=== PATIENT | female | born 1990 | race Caucasian/White ===

== ENCOUNTER → 2019-02-23 12:35 | Outpatient (CLI) | payer OTHER, SELFPAY ==
[2019-02-23 13:00] LABS: Add Manual Diff / Slide Review NO; Basophils Absolute Auto 0 /uL (0-100); Basophils Percent Auto 0.9 % (0-2); Eosinophils Absolute Auto 0 /uL (0-450); Eosinophils Percent Auto 1.1 % (2-4); Hematocrit 39.7 % (36-46); Hemoglobin 13.8 g/dL (12.0-16.0); Lymphocytes Absolute Auto 1200 /uL (1100-4500); Lymphocytes Percent Auto 31.6 % (25-40); Mean Corpuscular HGB Conc 34.8 % (30-36); Mean Corpuscular Hemoglobin 31.3 PG (26-34); Monocytes Absolute Auto 200 /uL (0-900); Monocytes Percent Auto 5.9 % (3-14); Neutrophils Absolute Auto 2300 /uL (1500-7000); Neutrophils Percent Auto 60.5 % (50-75); Platelet Count 237 X10^3/uL (150-400); Red Blood Cell Count 4.41 X10^6/uL (4.0-5.2); White Blood Cell Count 3.8 X10^3/uL (4.5-11.0)
[2019-02-23 13:31] LABS: Alanine Aminotransferase 25 IU/L (9-52); Albumin 4.6 g/dL (3.5-5.0); Albumin Globulin Ratio 1.6 (1.0-2.8); Alkaline Phosphatase 49 U/L (38-126); Aspartate Aminotransferase 31 IU/L (14-36); Bilirubin Total 0.5 mg/dL (0.2-1.3); Blood Urea Nitrogen 4 mg/dL (7-17); Calcium 9.1 mg/dL (8.4-10.2); Carbon Dioxide 25 mmol/L (22-32); Chloride 101 mmol/L (98-107); Cholesterol 133 mg/dL (140-199); Estimated Glomerular Filt Rate > 60.0 mL/min (>60); Globulin 2.8 g/dL (1.7-4.1); Glucose 86 mg/dL (70-100); HDL Cholesterol 54 mg/dL (40-60); HEMOLYSIS < 15 (0-50); LDL Cholesterol Calculated 71 mg/dL (<100); Sodium 137 mmol/L (137-145); Total Protein 7.4 g/dL (6.3-8.2); Triglycerides 39 mg/dL (35-150)
[2019-02-23 14:05] LABS: Ferritin 18.3 ng/mL (6.27-137)
[2019-02-23 15:18] LABS: Free T3, Triiodothyronine Free 4.48 pg/mL (2.77-5.27); Free T4, Direct Thyroxine 1.16 ng/dL (0.78-2.19)
[2019-02-23 15:32] LABS: Thyroid Stimulating Hormone 1.26 uIU/mL (0.47-4.68)
[2019-02-27 15:33] LABS: Anti Thyroglobulin Antibody 6 IU/mL (< 2); Thyroid Peroxidase Antibodies < 1 IU/mL (< 9)
== END ==
PROVIDERS: Visit Provider Naturopath
DX: Z00.00 Encounter for general adult medical examination without abnormal findings (principal); R53.83 Other fatigue
CPT/HCPCS: 36415; 80053; 80061; 82728; 84439; 84443; 84481; 85025; 86376; 86800

== ENCOUNTER 2019-05-25 14:07 | Emergency (ER) | payer OTHER, SELFPAY ==
[2019-05-25 14:10] VITALS: BP 111/75; PULSE 98; RESP 16; TEMP 37; O2SAT 100; BMI 20.3
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
== END 2019-05-25 16:45 | disposition short-term general hospital (02) ==
PROVIDERS: Emergency Provider Nurse Practitioner; PCP Naturopath
DX: T76.21XA Adult sexual abuse, suspected, initial encounter (principal)
CPT/HCPCS: 99281; 99283

== ENCOUNTER → 2022-06-04 19:12 | Outpatient (CLI) | payer OTHER, SELFPAY ==
[2022-06-04 21:02] LABS: Urine N gonorrhoeae NOT DETECTED
[2022-06-04 21:20] LABS: Urine Chlamydia NOT DETECTED
== END ==
PROVIDERS: PCP Naturopath; Visit Provider Family Medicine
DX: Z72.51 High risk heterosexual behavior (principal)
CPT/HCPCS: 87491; 87591

== ENCOUNTER 2022-08-13 17:30 | Observation (INO) | payer OTHER, SELFPAY ==
[2022-08-13] VITALS (13 sets, daily range): BP systolic 101–122; BP diastolic 60–76; PULSE 62–119; RESP 13–18; TEMP 36.2–37; O2SAT 96–100; BMI 21.2
--- NOTE | 2022-08-13 18:16 | ED_ITS ---
HPI - Abdominal Pain General Chief Complaint: Abdominal Pain Stated Complaint: ABD PAIN COLD CLAMMY, FEVER Time Seen by Provider: 08/13/22 18:16 Source: patient Mode of arrival: Wheelchair History of Present Illness HPI narrative: 32-year-old female smoker presents with a chief complaint of severe right lower quadrant pain that started relatively suddenly a few hours ago. She has had nausea and vomiting as well. She denies any fever but has been chilled. She states that her pain seems to be worse when she moves and improves with rest. Her last menstrual cycle was about 3 weeks ago. She denies any vaginal bleeding or discharge but states that she was spotting earlier in the week. She denies any dysuria, frequency or urgency. She denies runny nose, sore throat or cough and has no chest pain, shortness of breath Related Data Home Medications Medication Instructions Recorded Confirmed spironolactone 50 mg tablet 100 mg PO DAILY ##0 08/09/17 08/13/22 (Aldactone) minoxidil 2.5 mg tablet 2.5 mg PO Q OTHER DAY 08/13/22 08/13/22 Allergies Allergy/AdvReac Type Severity Reaction Status Date / Time UNKNOWN ABX FOR SKIN Allergy Unknown Uncoded 02/08/18 12:58 INFECTION Review of Systems Review of Systems Narrative: GENERAL: See HPI HEENT: Denies sinus pain, ear pain, sore throat, difficulty swallowing, dizziness. RESPIRATORY: See HPI CARDIOVASCULAR: Denies chest pain, palpitations, orthopnea, edema, GASTROINTESTINAL: See HPI : See HPI MUSCULOSKELETAL: denies weakness, joint pain, or bony pain SKIN: Denies rash, skin lesions, or other NEUROLOGIC: Denies weakness, headache, numbness, change in speech, confusion, seizures, incoordination. PSYCHIATRIC: No concerning psychosocial issues. 12 point review of systems is negative except for those stated above Patient History Medical History No significant medical problems Routine screening for STI (sexually transmitted infection) Social History household members: none Smoking Status: Current some day smoker alcohol intake: current Smoking Status: Current some day smoker tobacco type: vaping alcohol intake frequency: a few times a week Substance Use Type: does not use Exam Narrative Exam Narrative: GENERAL: [32] year old patient appears stated age. Well-developed patient, in mild distress. HEAD: Atraumatic. Normocephalic. EYES: Pupils equal round and reactive. Extraocular motions intact. No scleral icterus. No injection or drainage. ENT: Nose without bleeding, purulent drainage. Throat without erythema, tonsillar hypertrophy or exudate. Airway patent. NECK: Trachea midline. Non tender CARDIOVASCULAR: Regular rate and rhythm without murmurs, gallops, or rubs. RESPIRATORY: Clear to auscultation. Breath sounds equal bilaterally. No wheezes, rales, or rhonchi. GASTROINTESTINAL: Abdomen soft, right lower quadrant tenderness to palpation nondistended. EXTREMITIES: No edema or joint tenderness. BACK: Nontender without deformity or crepitance. No flank tenderness. NEURO: AOx3. SKIN: No rash or erythema of visible areas Initial Vital Signs Initial Vital Signs: Vital Signs Temperature 97.2 F L 08/13/22 17:42 Pulse Rate 62 08/13/22 17:42 Respiratory Rate 14 08/13/22 17:42 Blood Pressure 115/60 08/13/22 17:42 Pulse Oximetry 100 08/13/22 17:42 Oxygen Delivery Method 08/13/22 17:42 Course Orders Ordered: ED Orders 08/13/22 17:47 EKG-12 Lead Stat 08/13/22 18:29 COVID19 -Nasal RAPID/Pre-Proc Stat Complete Blood Count AUTO DIFF Stat Comprehensive Metabolic Panel Stat Ethanol (ETOH) Stat HCG Quantitative /Beta subunit Stat Lipase Stat 08/13/22 18:33 US pelvic complete Stat 08/13/22 19:38 Urine Drug Screen, Rapid Stat Oxycodone/Acetaminophen (Oxycodone/Acetaminophen 5/325 Tablet) 1 tab PO Q4HR PRN PRN Reason: Pain, Moderate (4-6) Discontinued Medications Albuterol (Albuterol 2.5 Mg/3 Ml Neb (Adult)) 2.5 mg INH NOW PRN PRN Reason: Coughing, Wheezing, Dyspnea Benzocaine (Benzocaine/Menthol 1 [place] Pkt) 1 each PO PRN PRN PRN Reason: Sore Throat Bupivacaine HCl/Epinephrine Bitart (Bupivacaine 0.5% W/ Epi (Pf) 30 Ml Vial) 30 ml INJ NOW ONE Stop: 08/13/22 21:54 Last Admin: 08/13/22 21:53 Dose: 12 ml Documented By: ONEIL Fentanyl (Fentanyl 100 Mcg/2 Ml Inj) 0 mcg IV Q5M PRN PRN Reason: Pain, Moderate (4-6) Hydromorphone HCl (Hydromorphone 0.5 Mg Inj) 0.5 mg IV NOW ONE Stop: 08/13/22 20:22 Last Admin: 08/13/22 20:30 Dose: 0.5 mg Documented By: CHRIS Hydromorphone HCl (Hydromorphone 2 Mg Inj) 0 mg IV Q5MIN PRN PRN Reason: Pain, Mild (1-3) Hydroxyzine HCl (Hydroxyzine 50 Mg/Ml Inj) 25 mg IM NOW PRN PRN Reason: Pain, Mild (1-3) Sodium Chloride (Normal Saline 0.9%) 1,000 mls @ 1,000 mls/hr IV BOLUS ONE Stop: 08/13/22 19:32 Last Infusion: 08/13/22 20:15 Dose: 0 mls/hr Documented By: Admin: 08/13/22 18:50 Dose: 1,000 mls/hr Documented By: DEMI Lactated Ringer's (Lactated Ringers) 1,000 mls @ 100 mls/hr IV CONT [facility] Last Infusion: 08/13/22 22:47 Dose: 0 mls/hr Documented By: Admin: 08/13/22 21:30 Dose: 100 mls/hr Documented By: ILIA Lactated Ringer's (Lactated Ringers) 1,000 mls @ 120 mls/hr IV CONT [facility] Last Admin: 08/13/22 23:52 Dose: Not Given Documented By: CINDY Ketorolac Tromethamine (Ketorolac 30 Mg/Ml Vial) 15 mg IV NOW ONE Stop: 08/13/22 18:34 Last Admin: 08/13/22 18:51 Dose: 15 mg Documented By: DEMI Lorazepam (Lorazepam 2 Mg/Ml Inj) 0.25 mg IV NOW PRN PRN Reason: Anxiety Meperidine HCl (Meperidine 50 Mg/Ml Inj) 12.5 mg IV PACUNOW PRN PRN Reason: Mild pain or shivering Ondansetron HCl (Ondansetron 4 Mg/2 Ml Inj) 4 mg IV NOW ONE Stop: 08/13/22 18:34 Last Admin: 08/13/22 18:50 Dose: 4 mg Documented By: DEMI Ondansetron HCl (Ondansetron 4 Mg/2 Ml Inj) 4 mg IV NOW PRN PRN Reason: Nausea And Vomiting Oxycodone HCl (Oxycodone Ir 5 Mg Tablet) 5 mg PO PACUNOW PRN PRN Reason: Mild or moderate pain Consultations Consultation #1: On-call gynecology contacted upon receipt of ultrasound, she will see patient at the bedside and take to the operating room tonight Vital Signs Vital signs: Vital Signs - 8 hr 08/13/22 17:42 08/13/22 18:31 08/13/22 18:41 Temperature 97.2 F L Pulse Rate 62 87 72 Respiratory Rate 14 18 Blood Pressure 115/60 Pulse Oximetry 100 100 100 Oxygen Delivery Method Room Air 08/13/22 18:41 08/13/22 19:00 08/13/22 19:00 Temperature Pulse Rate 62 Respiratory Rate Blood Pressure 108/69 112/75 Pulse Oximetry 100 Oxygen Delivery Method 08/13/22 19:30 08/13/22 19:30 Temperature Pulse Rate 63 Respiratory Rate Blood Pressure 109/64 Pulse Oximetry 100 Oxygen Delivery Method MDM - Abdominal Pain Lab Data Result diagrams: 08/13/22 18:29 08/13/22 18:29 Labs: Lab Results 08/13/22 08/13/22 08/13/22 Range/Units 18:29 18:29 18:29 WBC 10.7 (4.5-11.0) X10^3/uL RBC 4.04 (4.0-5.2) X10^6/uL Hgb 12.8 (12.0-16.0) g/dL Hct 36.4 (36-46) % MCV 90.3 (80-100) fL MCH 31.7 (26-34) PG MCHC 35.1 (30-36) % RDW 12.3 (11.6-14.8) % Plt Count 228 (150-400) X10^3/uL Neut % (Auto) 89.3 H (50-75) % Lymph % (Auto) 6.9 L (25-40) % Davie % (Auto) 3.6 (3-14) % Eos % (Auto) 0.1 L (2-4) % Baso % (Auto) 0.1 (0-2) % Neut # (Auto) 9600 H (3994-4786) /uL Lymph # (Auto) 700 L (1204-7647) /uL Davie # (Auto) 400 (0-900) /uL Eos # (Auto) 0 (0-450) /uL Baso # (Auto) 0 (0-100) /uL Sodium 133 L (137-145) mmol/L Potassium 3.5 (3.4-5.1) mmol/L Chloride 95 L (98-107) mmol/L Carbon Dioxide 25 (22-32) mmol/L BUN 6 L (7-17) mg/dL Creatinine 0.49 L (0.52-1.04) mg/dL Estimated GFR > 60 (>60) mL/min BUN/Creatinine Ratio 12.2 (6-22) Glucose 151 H (70-100) mg/dL Calcium 8.6 (8.4-10.2) mg/dL Total Bilirubin 0.3 (0.2-1.3) mg/dL AST 23 (14-36) IU/L ALT 20 (<35) IU/L Alkaline Phosphatase 59 (38-126) U/L Total Protein 7.4 (6.3-8.2) g/dL Albumin 4.6 (3.5-5.0) g/dL Globulin 2.8 (1.7-4.1) g/dL Albumin/Globulin Ratio 1.6 (1.0-2.8) Lipase 63 (23-300) U/L HCG, Quant < 2.4 mIU/mL U Opiates 300ng/mL cut (Negative) Ur Oxycodone Screen (Negative) Urine Methadone Screen (Negative) Ur Barbiturates Screen (Negative) U Tricyclic Antidepress (Negative) Ur Phencyclidine Scrn (Negative) Ur Amphetamines Screen (Negative) U Methamphetamines Scrn (Negative) Ur MDMA Scrn (Ecstasy) (Negative) U Benzodiazepines Scrn (Negative) Urine Cocaine Screen (Negative) U Marijuana (THC) Screen (Negative) Ethyl Alcohol ( - 10) mg/dL SARS-CoV-2 (PCR) (Negative) 08/13/22 08/13/22 08/13/22 Range/Units 18:29 18:29 19:38 WBC (4.5-11.0) X10^3/uL RBC (4.0-5.2) X10^6/uL Hgb (12.0-16.0) g/dL Hct (36-46) % MCV (80-100) fL MCH (26-34) PG MCHC (30-36) % RDW (11.6-14.8) % Plt Count (150-400) X10^3/uL Neut % (Auto) (50-75) % Lymph % (Auto) (25-40) % Davie % (Auto) (3-14) % Eos % (Auto) (2-4) % Baso % (Auto) (0-2) % Neut # (Auto) (3026-6328) /uL Lymph # (Auto) (8861-8091) /uL Davie # (Auto) (0-900) /uL Eos # (Auto) (0-450) /uL Baso # (Auto) (0-100) /uL Sodium (137-145) mmol/L Potassium (3.4-5.1) mmol/L Chloride (98-107) mmol/L Carbon Dioxide (22-32) mmol/L BUN (7-17) mg/dL Creatinine (0.52-1.04) mg/dL Estimated GFR (>60) mL/min BUN/Creatinine Ratio (6-22) Glucose (70-100) mg/dL Calcium (8.4-10.2) mg/dL Total Bilirubin (0.2-1.3) mg/dL AST (14-36) IU/L ALT (<35) IU/L Alkaline Phosphatase (38-126) U/L Total Protein (6.3-8.2) g/dL Albumin (3.5-5.0) g/dL Globulin (1.7-4.1) g/dL Albumin/Globulin Ratio (1.0-2.8) Lipase (23-300) U/L HCG, Quant mIU/mL U Opiates 300ng/mL cut Negative (Negative) Ur Oxycodone Screen Negative (Negative) Urine Methadone Screen Negative (Negative) Ur Barbiturates Screen Negative (Negative) U Tricyclic Antidepress Negative (Negative) Ur Phencyclidine Scrn Negative (Negative) Ur Amphetamines Screen Negative (Negative) U Methamphetamines Scrn Negative (Negative) Ur MDMA Scrn (Ecstasy) Negative (Negative) U Benzodiazepines Scrn Negative (Negative) Urine Cocaine Screen Negative (Negative) U Marijuana (THC) Screen Negative (Negative) Ethyl Alcohol < 10 ( - 10) mg/dL SARS-CoV-2 (PCR) Negative (Negative) Point of care testing: Point of Care Testing Test Results Negative Urine Dip Bedside Urine Glucose Negative Bedside Urine Bilirubin - Negative Bedside Urine Ketone +++ 80 Urine Specific [place] 1.015 Bedside Urine Occult Blood - Negative Bedside Urine pH 6.0 Bedside Urine Protein - Negative Bedside Urine Urobilinogen - Negative Bedside Urine Nitrite - Negative Bedside Urine Leukocytes - Negative Esterase Imaging Data [place] - [employer]OL ADMINISTRATOR: Radiologist's Impression: [address] [id number] Scan ReportSigned Patient: Leah Tello RMR#: [id number]: 07/20/1975Acct:[id number]/Sex: 47 / FDate of Service: 08/13/22Loc: EDAccession Number: [id number] Procedure: CT abdomen pelvis w con Ordering Provider: Ben Olson D.O. PROCEDURE: CT ABDOMEN PELVIS W CON INDICATIONS: abdominal pain back pain, diarrhea, blood TECHNIQUE: After the administration of IV contrast, axial sections were acquired from the lung bases to the pubic symphysis. Coronal and sagittal reformats were performed. For radiation dose reduction, the following was used: automated exposure control, adjustment of mA and/or kV according to patient size. COMPARISON: None. FINDINGS: Image quality: Excellent. Lung bases: Left lower lobe pulmonary nodule measuring 0.2 cm (3/3). No pleural effusion. Heart: No significant findings. ABDOMEN: Liver: Hepatic steatosis. Hepatomegaly. No focal lesion Gallbladder: Not distended. Biliary ducts: Not distended. Pancreas: No peripancreatic fluid collection. Spleen: No splenomegaly. Adrenal Glands: No nodule. Kidneys and Ureters: No hydronephrosis. Simple cyst at the right kidney. Stomach and Bowel: Stomach is not distended. No small bowel obstruction. The appendix is not dilated. Peritoneum: No abnormal intraperitoneal fluid. No free air. Ventral Wall: No hernia. Abdominal Nodes: No retroperitoneal or mesenteric adenopathy by size criteria. Vessels: Aorta and inferior vena cava are normal in size. Mild plaque. PELVIS: Pelvic Organs: Anteverted uterus. IUD centered in the uterine cavity. Trace fluid adjacent to the uterus. Small left ovarian cysts or follicles. Bladder: No stones. Pelvic Nodes: No enlarged lymph nodes. Miscellaneous: No inguinal hernias are seen. Bones: No suspicious lesion. IMPRESSION: 1. No acute abnormality identified. 2. Hepatic steatosis. Hepatomegaly. Dictated by: Jose Cole M.D. on 08/13/2022 at 21:28 Approved by: Jose Cole M.D. on 08/13/2022 at 21:34 Discharge Plan Departure Patient Disposition: Admitted to Surgery Clinical Impression: Ovarian torsion Admit Date/Time: 08/13/22 20:22 Admit Provider: Constance Morton
--- NOTE | 2022-08-13 18:33 | DI.US.S_ITS ---
PROCEDURE: US PELVIC COMPLETE INDICATIONS: severe RLQ pain TECHNIQUE: Real-time scanning was performed of the pelvic organs, with image documentation. Additional endovaginal scanning was necessary due to incomplete visualization of the adnexal and endometrial structures by transabdominal scanning. COMPARISON: None. FINDINGS: Uterus: Uterus is anteverted and normal in size at 7.3 x 4.2 x 3.5 cm. The myometrium is homogeneous. The endometrium measures 2 mm combined thickness. No fibroids seen. Ovaries: The right ovary measures 8.7 x 6.2 x 4.6 cm, with a calculated ovarian volume of 129 cc. The left ovary measures 3.2 x 2.8 x 2.3 cm, with a calculated ovarian volume of 11 cc. The ovaries have a normal sonographic appearance. Less than 12 follicles can be seen in each ovary. Right ovarian anechoic cyst measuring 3.7 x 3.4 x 3.2 cm located in the mid cold the sac. No internal vascularity. No conspicuous internal vascularity is demonstrated at the right ovary. Flow is seen in the left ovary. Other: No pathologic free abdominal or pelvic fluid. IMPRESSION: 1. Right ovary is markedly enlarged without or severely diminished internal blood flow. This is suspicious for right ovarian torsion. 2. Right ovarian anechoic cyst measuring 3.7 cm. 3. Blood flow is seen in the left ovary. 4. No endometrial thickening. Results were discussed with Ben Olson at 8:12 p.m. We strive to produce accurate, complete, and clear reports of imaging services. To assist us in improving patient care, this report was composed using standard report templates and voice recognition software. Therefore, it may contain abnormal punctuation, insertions and/or omissions. Occasional wrong-word or sound-alike substitutions may occur. Though we review the report and make efforts to correct it, we do recommend that the report be read carefully in proper context to recognize any text inaccuracies. Dictated by: Jose Cole M.D. on 08/13/2022 at 20:06 Approved by: Jose Cole M.D. on 08/13/2022 at 20:14
[2022-08-13 18:42] LABS: Add Manual Diff / Slide Review NO; Basophils Absolute Auto 0 /uL (0-100); Basophils Percent Auto 0.1 % (0-2); Eosinophils Absolute Auto 0 /uL (0-450); Eosinophils Percent Auto 0.1 % (2-4); Hematocrit 36.4 % (36-46); Hemoglobin 12.8 g/dL (12.0-16.0); Lymphocytes Absolute Auto 700 /uL (1100-4500); Lymphocytes Percent Auto 6.9 % (25-40); Mean Corpuscular HGB Conc 35.1 % (30-36); Mean Corpuscular Hemoglobin 31.7 PG (26-34); Mean Corpuscular Volume 90.3 fL (80-100); Monocytes Absolute Auto 400 /uL (0-900); Monocytes Percent Auto 3.6 % (3-14); Neutrophils Absolute Auto 9600 /uL (1500-7000); Neutrophils Percent Auto 89.3 % (50-75); Platelet Count 228 X10^3/uL (150-400); Red Blood Cell Count 4.04 X10^6/uL (4.0-5.2); Red Cell Distribution Width 12.3 % (11.6-14.8); White Blood Cell Count 10.7 X10^3/uL (4.5-11.0)
[2022-08-13 18:50] LABS: Alanine Aminotransferase 20 IU/L (<35); Albumin 4.6 g/dL (3.5-5.0); Albumin Globulin Ratio 1.6 (1.0-2.8); Alkaline Phosphatase 59 U/L (38-126); Aspartate Aminotransferase 23 IU/L (14-36); BUN Creatinine Ratio 12.2 (6-22); Bilirubin Total 0.3 mg/dL (0.2-1.3); Blood Urea Nitrogen 6 mg/dL (7-17); Calcium 8.6 mg/dL (8.4-10.2); Carbon Dioxide 25 mmol/L (22-32); Chloride 95 mmol/L (98-107); Estimated Glomerular Filt Rate > 60 mL/min (>60); Globulin 2.8 g/dL (1.7-4.1); Glucose 151 mg/dL (70-100); HEMOLYSIS < 15 (0-50); Lipase 63 U/L (23-300); Potassium 3.5 mmol/L (3.4-5.1); Sodium 133 mmol/L (137-145); Total Protein 7.4 g/dL (6.3-8.2)
[2022-08-13] MEDS: ONDANSETRON 4 MG/2 ML INJ IV (18:50)
[2022-08-13] MEDS: SODIUM CHLORIDE 0.9% 1,000 ML 1000 ML IV (18:50)
[2022-08-13] MEDS: KETOROLAC 30 MG/ML VIAL 15 MG IV (18:51)
[2022-08-13 18:58] LABS: COVID19 -Nasal RAPID Negative (Negative)
[2022-08-13 19:23] LABS: HCG Quantitative /Beta subunit < 2.4 mIU/mL
[2022-08-13] MEDS: HYDROMORPHONE 0.5 MG INJ IV (20:30)
--- NOTE | 2022-08-13 20:35 | PM.PREOP ---
Pre-operative Note COVID-19 COVID-19 status: Negative Result date/Date tested (Pos, Neg/Pending): 08/13/22 Criteria for continued procedure: Expected advancement of disease process Interval Note History & Physical reviewed/Exam performed by Physician: Yes Changes to H&P: No
--- NOTE | 2022-08-13 20:35 | PM.GYNHP.1 ---
History of Present Illness History of Present Illness Reason for admission: other (Right lower quadrant pain) Narrative: Mona Ohara is a 32 year old female presented to the emergency room after sudden onset right lower quadrant pain at 2:30 p.m.. Patient had nausea vomiting. She has not had anything oral other than water since last night. Patient's last menstrual period was approximately 2 weeks ago. She is using Nexplanon for control. She denies any urinary tract infection symptoms. No diarrhea or constipation. She has not had any abdominal surgery. She denies any history of . [facility] Medical History No significant medical problems Routine screening for STI (sexually transmitted infection) Social History Smoking Status: Current some day smoker Meds Home Medications and Allergies Home Medications Medication Instructions Recorded Confirmed Type spironolactone 50 mg tablet ##0 08/09/17 History (Aldactone) Allergies Allergy/AdvReac Type Severity Reaction Status Date / Time UNKNOWN ABX FOR SKIN Allergy Unknown Uncoded 02/08/18 12:58 INFECTION Review of Systems Review of Systems Narrative: Patient complains of right lower quadrant pain with nausea and vomiting. Unclear about fevers. The pain was sudden in onset. Last menstrual period approximately 2 weeks ago. She is currently using Nexplanon for control. Patient denies any problems with urination. No problems with constipation or diarrhea. No history of any prior surgeries. Exam Vital Signs (past 8 hours): - 08/13/22 17:42 08/13/22 18:31 Temperature 97.2 F L Pulse Rate 62 87 Respiratory Rate 14 18 Blood Pressure 115/60 Pulse Oximetry 100 100 Oxygen Delivery Method Room Air Oxygen Delivery Method Room Air Narrative Exam Narrative: Patient appears in acute distress. She is unable to sit quietly. She is having dry heaves. HEENT exam within normal limits. Lungs are clear to auscultation percussion. Heart is regular rate and rhythm no S3-S4 murmurs. Abdomen is soft with tenderness in the right lower quadrant. Pelvic exam not performed. Extremities without edema and nontender. Objective Imaging US - abdomen: Radiologist's impression: PROCEDURE:? US PELVIC COMPLETE ? INDICATIONS:? severe RLQ pain ? TECHNIQUE:? Real-time scanning was performed of the pelvic organs, with image documentation.? Additional endovaginal scanning was necessary due to incomplete visualization of the adnexal and endometrial structures by transabdominal scanning.? ? COMPARISON:? None. ? FINDINGS:? ?? Uterus:? Uterus is anteverted and normal in size at 7.3 x 4.2 x 3.5 cm. The myometrium is homogeneous. ? The endometrium measures 2 mm combined thickness.? No fibroids seen. ? Ovaries:? The right ovary measures 8.7 x 6.2 x 4.6 cm, with a calculated ovarian volume of 129 cc. The left ovary measures 3.2 x 2.8 x 2.3 cm, with a calculated ovarian volume of 11 cc. The ovaries have a normal sonographic appearance. Less than 12 follicles can be seen in each ovary.? Right ovarian anechoic cyst measuring 3.7 x 3.4 x 3.2 cm located in the mid cold the sac.? No internal vascularity.? No conspicuous internal vascularity is demonstrated at the right ovary.? Flow is seen in the left ovary. ? Other:? No pathologic free abdominal or pelvic fluid. ? ? IMPRESSION:? 1. Right ovary is markedly enlarged without or severely diminished internal blood flow.? This is suspicious for right ovarian torsion. ? 2. Right ovarian anechoic cyst measuring 3.7 cm. ? 3. Blood flow is seen in the left ovary. ? 4. No endometrial thickening.? ? Results were discussed with Ben Olson at 8:12 p.m. ? Labs Result Diagrams: 08/13/22 18:29 08/13/22 18:29 Labs: Laboratory Results - last 24 hr 08/13/22 08/13/22 08/13/22 18:29 18:29 18:29 WBC 10.7 RBC 4.04 Hgb 12.8 Hct 36.4 MCV 90.3 MCH 31.7 MCHC 35.1 RDW 12.3 Plt Count 228 Neut % (Auto) 89.3 H Lymph % (Auto) 6.9 L [place] % (Auto) 3.6 Eos % (Auto) 0.1 L Baso % (Auto) 0.1 Neut # (Auto) 9600 H Lymph # (Auto) 700 L [place] # (Auto) 400 Eos # (Auto) 0 Baso # (Auto) 0 Sodium 133 L Potassium 3.5 Chloride 95 L Carbon Dioxide 25 BUN 6 L Creatinine 0.49 L Estimated GFR > 60 BUN/Creatinine Ratio 12.2 Glucose 151 H Calcium 8.6 Total Bilirubin 0.3 AST 23 ALT 20 Alkaline Phosphatase 59 Total Protein 7.4 Albumin 4.6 Globulin 2.8 Albumin/Globulin Ratio 1.6 Lipase 63 HCG, Quant < 2.4 SARS-CoV-2 (PCR) 08/13/22 18:29 WBC RBC Hgb Hct MCV MCH MCHC RDW Plt Count Neut % (Auto) Lymph % (Auto) [place] % (Auto) Eos % (Auto) Baso % (Auto) Neut # (Auto) Lymph # (Auto) [place] # (Auto) Eos # (Auto) Baso # (Auto) Sodium Potassium Chloride Carbon Dioxide BUN Creatinine Estimated GFR BUN/Creatinine Ratio Glucose Calcium Total Bilirubin AST ALT Alkaline Phosphatase Total Protein Albumin Globulin Albumin/Globulin Ratio Lipase HCG, Quant SARS-CoV-2 (PCR) Negative Assessment & Plan Assessment and plan (1) Ovary, torsion: Status: Acute Assessment & Plan narrative: Patient with what appears by symptoms and ultrasound finding to be a right ovarian torsion. Laparoscopic evaluation with untwisting of the ovary, possible removal of ovarian cyst, possible oophorectomy. Consent form for laparoscopy was reviewed with the patient. Minimal risk of reaction to medication or anesthesia, damage to internal structures such as bowel, bladder, ureters that could require opening the abdomen to repair or additional surgery, minimal risk of infection or bleeding. Consent form signed with mother present and sign with mother signing as witness. Questions answered. COVID-19 COVID-19 status: Negative Result date/Date tested (Pos, Neg/Pending): 08/13/22 Time Spent With Patient Time with patient: less than 30 minutes Critical Care time: I spent a total of [] minutes of critical care time on this patient's care today; this time is exclusive of procedural time.
[2022-08-13 20:49] LABS: Ethanol (ETOH) < 10 mg/dL
[2022-08-13] MEDS: LACTATED RINGERS 1,000 ML 100 ML IV (21:30)
[2022-08-13 21:32] LABS: UR Morphine/Opiate cutoff 300 Negative (Negative); Ur Creatinine Normal (Normal); Ur Specific Gravity Normal (Normal); Urine Amphetamines Negative (Negative); Urine Barbiturates Negative (Negative); Urine Benzodiazepines Negative (Negative); Urine Cocaine Negative (Negative); Urine MDMA Negative (Negative); Urine Methadone Negative (Negative); Urine Methamphetamines Negative (Negative); Urine Oxycodone Negative (Negative); Urine Phencyclidine Negative (Negative); Urine Tetrahydrocannabinol Negative (Negative); Urine Tricyclic Antidepressant Negative (Negative); Urine pH Normal (Normal)
--- NOTE | 2022-08-13 21:46 | SUR.OPER ---
Lithotomy on padded OR bed, head on pillow, arms secured on padded arm boards at <90 degrees abduction. Legs secured in padded yellow fins stirrups.
[2022-08-13] MEDS: BUPIVACAINE 0.5% W/ EPI (PF) 30 ML VIAL INJ (21:53)
--- NOTE | 2022-08-13 23:18 | SUR.PHASEI ---
Patient transferred to the floor with mother present. VS stable. Report given to Lisa Morocho RN. Abdominal dressings and peripad CDI. IV saline locked.
[2022-08-14 00:20] VITALS: BP 111/68; PULSE 74; RESP 18; TEMP 36.2; O2SAT 98
[2022-08-14 01:20] VITALS: BP 111/66; PULSE 89; RESP 18; TEMP 37.1; O2SAT 97
[2022-08-14 02:50] VITALS: BP 120/66; PULSE 85; RESP 18; TEMP 36.8; O2SAT 98
--- NOTE | 2022-08-14 02:56 | PC.ADMIT ---
Addendum entered by Lisa Morocho R.N. 08/14/22 03:39: Contacted Dr. Morton regarding patients home medication Minoxidil and Spironolactone, she stated patient could wait until tomorrow when she gets home to take. Original Note: [address] [place] [address] Admission Note: Patient admitted to AC unit at 22:55 from PACU. Alert and oriented x 4, lying in bed and appears comfortable. Oriented to room and shown how to use call light. Brakes on bed are locked and bed is in low position. Patient has 3 lap sites to abdomen covered by bandages and a ventura pad in place, all CDI. Tolerating food and liquids. The patient,Mona Ohara,32 y/o, was given written information regarding hospital policies, unit procedures and contact persons. Patient's smoking status: Current some day smoker. Vital Signs - 8 hr 08/13/22 19:00 08/13/22 19:00 08/13/22 19:30 Temperature Pulse Rate 62 Respiratory Rate Blood Pressure 112/75 109/64 Pulse Oximetry 100 Oxygen Delivery Method Oxygen Flow Rate 08/13/22 19:30 08/13/22 22:17 08/13/22 22:22 Temperature Pulse Rate 63 119 H 112 H Respiratory Rate 14 13 Blood Pressure 103/60 110/73 Pulse Oximetry 100 100 100 Oxygen Delivery Method Room Air Room Air Oxygen Flow Rate 08/13/22 22:28 08/13/22 22:32 08/13/22 22:41 Temperature 97.9 F Pulse Rate 105 H 107 H 94 H Respiratory Rate 14 18 16 Blood Pressure 101/66 103/68 102/62 Pulse Oximetry 100 100 100 Oxygen Delivery Method Room Air Room Air Room Air Oxygen Flow Rate 08/13/22 22:13 08/13/22 22:55 08/13/22 23:20 Temperature 97.7 F 98.1 F 98.6 F Pulse Rate 118 H 94 H 98 H Respiratory Rate 17 18 18 Blood Pressure 112/76 122/70 109/67 Pulse Oximetry 96 100 99 Oxygen Delivery Method Room Air Oxygen Flow Rate 0 0 08/14/22 00:20 08/14/22 01:20 08/14/22 02:50 Temperature 97.1 F L 98.7 F 98.2 F Pulse Rate 74 89 85 Respiratory Rate 18 18 18 Blood Pressure 111/68 111/66 120/66 Pulse Oximetry 98 97 98 Oxygen Delivery Method Oxygen Flow Rate 0 0 0
[2022-08-14] MEDS: OXYCODONE/ACETAMINOPHEN 5/325 TABLET 1 TAB PO (03:09)
[2022-08-14 08:45] VITALS: BP 113/65; PULSE 84; RESP 18; TEMP 36.3; O2SAT 99
--- NOTE | 2022-08-14 08:47 | P.DS_ITS ---
History of Present Illness History of Present Illness Date Patient Seen: 08/14/22 Time Patient Seen: 08:47 Date of Onset of Symptoms: 08/13/22 Chief complaint: ABD PAIN COLD CLAMMY, FEVER Narrative: Patient had sudden onset of pain and presented to the emergency room. Patient was found to have a right ovarian tubal torsion. Discharge Providers Provider Date of admission: 08/13/22 20:22 Discharge Date: 08/14/22 Primary care physician: Kate Montelongo ND Discharge provider: Constance Morton MD Summary Hospital Course Discharge Diagnosis: Right ovarian tubal torsion Hospital Course: Patient had sudden onset of pain and presented to the emergency room. Patient was found to have a right ovarian tubal torsion. She underwent laparoscopy and the tube and ovary untwisted. She is feeling much better. She denies any fevers. She is ambulatory. She is tolerating regular diet. Status at Discharge Cognitive/behavioral status at discharge: oriented Functional status at discharge: independent ambulation Overall status at discharge: patient is progressing back to baseline Time Spent with Patient Time spent: Less than 30 minutes Exam Vital Signs (past 8 hours): - 08/14/22 01:20 08/14/22 02:50 08/14/22 08:45 Temperature 98.7 F 98.2 F 97.3 F L Pulse Rate 89 85 84 Respiratory Rate 18 18 18 Blood Pressure 111/66 120/66 113/65 Pulse Oximetry 97 98 99 Oxygen Flow Rate 0 0 0 Oxygen Delivery Method Room Air Oxygen Flow Rate 0 Narrative Exam Narrative: Abdomen is soft, nontender. Dressings are clean, dry, intact. Extremities without edema and nontender. Objective Labs Result Diagrams: 08/13/22 18:29 08/13/22 18:29 Labs: Laboratory Results - last 24 hr 08/13/22 08/13/22 08/13/22 18:29 18:29 18:29 WBC 10.7 RBC 4.04 Hgb 12.8 Hct 36.4 MCV 90.3 MCH 31.7 MCHC 35.1 RDW 12.3 Plt Count 228 Neut % (Auto) 89.3 H Lymph % (Auto) 6.9 L [place] % (Auto) 3.6 Eos % (Auto) 0.1 L Baso % (Auto) 0.1 Neut # (Auto) 9600 H Lymph # (Auto) 700 L [place] # (Auto) 400 Eos # (Auto) 0 Baso # (Auto) 0 Sodium 133 L Potassium 3.5 Chloride 95 L Carbon Dioxide 25 BUN 6 L Creatinine 0.49 L Estimated GFR > 60 BUN/Creatinine Ratio 12.2 Glucose 151 H Calcium 8.6 Total Bilirubin 0.3 AST 23 ALT 20 Alkaline Phosphatase 59 Total Protein 7.4 Albumin 4.6 Globulin 2.8 Albumin/Globulin Ratio 1.6 Lipase 63 HCG, Quant < 2.4 U Opiates 300ng/mL cut Ur Oxycodone Screen Urine Methadone Screen Ur Barbiturates Screen U Tricyclic Antidepress Ur Phencyclidine Scrn Ur Amphetamines Screen U Methamphetamines Scrn Ur MDMA Scrn (Ecstasy) U Benzodiazepines Scrn Urine Cocaine Screen U Marijuana (THC) Screen Ethyl Alcohol SARS-CoV-2 (PCR) 08/13/22 08/13/22 08/13/22 18:29 18:29 19:38 WBC RBC Hgb Hct MCV MCH MCHC RDW Plt Count Neut % (Auto) Lymph % (Auto) [place] % (Auto) Eos % (Auto) Baso % (Auto) Neut # (Auto) Lymph # (Auto) [place] # (Auto) Eos # (Auto) Baso # (Auto) Sodium Potassium Chloride Carbon Dioxide BUN Creatinine Estimated GFR BUN/Creatinine Ratio Glucose Calcium Total Bilirubin AST ALT Alkaline Phosphatase Total Protein Albumin Globulin Albumin/Globulin Ratio Lipase HCG, Quant U Opiates 300ng/mL cut Negative Ur Oxycodone Screen Negative Urine Methadone Screen Negative Ur Barbiturates Screen Negative U Tricyclic Antidepress Negative Ur Phencyclidine Scrn Negative Ur Amphetamines Screen Negative U Methamphetamines Scrn Negative Ur MDMA Scrn (Ecstasy) Negative U Benzodiazepines Scrn Negative Urine Cocaine Screen Negative U Marijuana (THC) Screen Negative Ethyl Alcohol < 10 SARS-CoV-2 (PCR) Negative [facility] Medical History No significant medical problems Routine screening for STI (sexually transmitted infection) Social History household members: none Smoking Status: Current some day smoker alcohol intake: current Discharge Assessment & Plan Assessment and Plan Assessment: Postoperative laparoscopy for right ovarian torsion. Patient is doing well. Plan of Treatment: Patient is to be discharged home. Patient is to have a follow-up in 6 weeks including an ultrasound to confirm resolution of the right ovarian hemorrhagic appearing cyst. Discharge Plan Discharge Plan Patient Disposition: Home Provider Discharge Comment: Patient should take Tylenol and Motrin up to 600 mg every 6 hours as needed for pain Discharge orders & Medications Prescriptions: New oxycodone 5 mg tablet 5 mg PO Q4H PRN (Reason: pain) Qty: 20 0RF Continued spironolactone [Aldactone] 50 MG tablet 100 mg PO DAILY Qty: 0 minoxidil 2.5 mg tablet 2.5 mg PO Q OTHER DAY Label Comments: take 1/2 tablet by mouth every other day Follow up/Referrals: Kate Montelongo ND [Primary Care Provider] - Constance Morton MD [Physician] - 6 Weeks (To be assigned to Dr. [place]) Diet/Activity/Treatments Diet: Regular Activity: No restrictions Skin/Wound/Dressing Care Report to your healthcare provider any signs of infection, such as:: chills, fever, increased pain, unusual drainage and unusual redness Dressing: May remove Band-Aids later today. Leave Steri-Strips in place for 1 week can get wet just pat dry. In one-week get wet and rub off Visit Report/Discharge Packet Instructions: DI for Laparoscopy, DI for Prescription Opioid Use Stand Alone Forms: Surgery Discharge Discharge Data Primary Care Provider: Kate Montelongo Attending Provider: Constance Morton Quality VTE Deep Vein Thrombosis/Pulmonary Embolism Present on Admission: No
--- NOTE | 2022-08-14 08:58 | PM.OP.1 ---
Operative Date/Time/Diagnoses Date of procedure: 08/13/22 Time of procedure: 22:15 Pre-op diagnosis: Ovarian torsion Post-op diagnosis: same Procedure & Clinicians Procedure: Laparoscopy with untwisting the right ovary Same procedure as scheduled: Yes Indications: Abdominal pain with ultrasound suggestive right ovarian torsion Surgeon: Constance Morton Click Yes if Unassisted: Yes Anesthesia Type: General Operative Notes Findings: Right tube and ovary torsion. Normal-appearing uterus and left tube and ovary. Normal bowel surface. Normal liver edge. No evidence of endometriosis or scar tissue. Ovary was entered in 3 places to see if there was any tumor and it appeared to be clotted blood only in the ovary. Closure Type: primary Specimen(s): none sent Estimated Blood Loss (mL): 5 Blood products transfused: none Procedure in detail: Patient was brought to the operating room where she underwent general anesthesia and was placed in low [place] stirrups and prepped and draped in the usual sterile fashion.? Pulsatile stockings were in place and functional.? No antibiotics were indicated.? A check system was reviewed with the staff in the room prior to beginning the case.? A moistened sponge stick was placed in the vagina.? The area of the umbilical incision was injected with .? An incision was made with a scalpel in the varies needle was placed through the incision into the abdomen with withdrawing of the needle and allowing a droplet water to fall through the needle to confirm correct placement.? 2 1/2 L of CO2 was placed in the abdomen.? A 5 mm trocar was placed through the incision is the abdomen.? There did not appear to be any damage with placement the trocar.? Under direct visualization after air injecting the skin and making an incision 5 mm trocars were placed in the right and left lower quadrant.? There was no damage to structures with placement of the trocars.? The right tube and ovary were dark blue.? The torsion of the right tube and ovary was untwisted.? The tube very quickly returned to normal color.? The enlarged ovary was cut into in 3 places with removal of blood clot only no evidence of tumor.? The ovary did have bleeding from the incisions confirming return of blood flow.? The abdomen was irrigated.? The CO2 was allowed escape from the abdomen and trocars removed.? Skin was closed with 4-0 Monocryl.? Estimated blood loss less than 5 cc.? Patient went to the recovery room in stable condition. Counts of instruments and sponges were correct. Complications: none Post-operative Condition: stable Disposition: observation Plan for aftercare: Patient will be observed overnight due to the time of day and the patient's living situation. Likely home in a.m..
== END 2022-08-14 10:25 | disposition home or self-care (01) ==
LOC: ED 18:16 → AC 20:23
PROVIDERS: Emergency Medicine; Admitting Provider Specialist; Emergency Provider Emergency Medicine; PCP Naturopath; Referring Provider Emergency Medicine; Visit Provider Specialist
PROC: (CPT 58661; principal; 2022-08-13 21:45)
DX: N83.511 Torsion of right ovary and ovarian pedicle (principal); R10.9 Unspecified abdominal pain; Z20.822 Contact with and (suspected) exposure to COVID-19; F17.210 Nicotine dependence, cigarettes, uncomplicated
CPT/HCPCS: 49320; 00840; 00848; 36415; 76830; 76856; 80053; 80305; 80320; 81003; 81025; 83690; 84702; 85025; 87635; 93005; 93010; 93976; 96361; 96374; 96375; 99219; 99284; C9803; G0378; J0330; J1100; J1170; J1885; J2250; J2405; J2704; J3010

== ENCOUNTER 2022-09-19 20:15 | Observation (INO) | payer OTHER, SELFPAY ==
[2022-08-13 20:46] VITALS: BMI 21.2
[2022-09-19] VITALS (8 sets, daily range): BP systolic 107–127; BP diastolic 57–87; PULSE 56–81; RESP 16–20; TEMP 36.4–37.2; O2SAT 92–100; BMI 21.2
[2022-09-19] MEDS: ONDANSETRON 4 MG/2 ML INJ IV ×2 (20:40→21:52)
--- NOTE | 2022-09-19 20:44 | DI.US.S_ITS ---
PROCEDURE: US PELVIC COMPLETE INDICATIONS: RIGHT PELVIC PAIN; RECENT RIGHT OVARIAN TORSION TECHNIQUE: Real-time scanning was performed of the pelvic organs, with image documentation. Additional endovaginal scanning was necessary due to incomplete visualization of the adnexal and endometrial structures by transabdominal scanning. COMPARISON: [facility], US, US PELVIC COMPLETE, 08/13/2022, 19:13. FINDINGS: Uterus: Uterus is anteverted and measures 6.3 x 2.9 x 4.5 cm. Endometrium measures up to 0.5 cm. Ovaries: The right ovary measures 6.1 x 5.2 x 2.4 cm, with a calculated ovarian volume of 40 cc. The left ovary measures 3.5 x 3.9 x 2.5 cm, with a calculated ovarian volume of 17.6 cc. The right ovary demonstrates a few peripherally distributed follicles, the largest measuring up to 1.3 cm. No definite arterial flow demonstrated within the right ovary on Doppler interrogation. There is minimal venous flow demonstrated within the right ovary. Within the left ovary, there is an oval hypoechoic structure suggestive of a complex cyst measuring up to 1.8 x 1.2 x 1.3 cm. Patent arterial flow is demonstrated within the left ovary. Other: There is a small amount of pelvic free fluid. IMPRESSION: 1. Prominently enlarged right ovary with peripherally distributed follicles and absence of arterial flow on Doppler interrogation. The findings are compatible with recurrent ovarian torsion. Findings discussed with Dr. Shore on 09/19/2022 at 9:42 p.m.. 2. Hypoechoic structure within the left ovary likely represents a mildly complex cyst. A follow-up ultrasound may be performed in 6-12 weeks to demonstrate resolution. We strive to produce accurate, complete, and clear reports of imaging services. To assist us in improving patient care, this report was composed using standard report templates and voice recognition software. Therefore, it may contain abnormal punctuation, insertions and/or omissions. Occasional wrong-word or sound-alike substitutions may occur. Though we review the report and make efforts to correct it, we do recommend that the report be read carefully in proper context to recognize any text inaccuracies. Dictated by: Aubrey Wilks M.D. on 09/19/2022 at 21:40 Approved by: Aubrey Wilks M.D. on 09/19/2022 at 21:50
[2022-09-19] MEDS: SODIUM CHLORIDE 0.9% 1,000 ML 1000 ML IV (21:00)
[2022-09-19] MEDS: HYDROMORPHONE 1 MG INJ IV (21:02)
[2022-09-19 21:18] LABS: Add Manual Diff / Slide Review NO; Basophils Absolute Auto 100 /uL (0-100); Basophils Percent Auto 1.4 % (0-2); Eosinophils Absolute Auto 0 /uL (0-450); Eosinophils Percent Auto 0.5 % (2-4); Hematocrit 40.1 % (36-46); Lymphocytes Absolute Auto 2700 /uL (1100-4500); Lymphocytes Percent Auto 27.9 % (25-40); Mean Corpuscular Hemoglobin 31.4 PG (26-34); Mean Corpuscular Volume 89.7 fL (80-100); Monocytes Absolute Auto 700 /uL (0-900); Monocytes Percent Auto 7.5 % (3-14); Neutrophils Absolute Auto 6100 /uL (1500-7000); Neutrophils Percent Auto 62.7 % (50-75); Platelet Count 325 X10^3/uL (150-400); Red Blood Cell Count 4.47 X10^6/uL (4.0-5.2); Red Cell Distribution Width 12.1 % (11.6-14.8); White Blood Cell Count 9.7 X10^3/uL (4.5-11.0)
[2022-09-19 21:23] LABS: Alanine Aminotransferase 21 IU/L (<35); Albumin 4.7 g/dL (3.5-5.0); Albumin Globulin Ratio 1.5 (1.0-2.8); Alkaline Phosphatase 72 U/L (38-126); Aspartate Aminotransferase 30 IU/L (14-36); BUN Creatinine Ratio 23.4 (6-22); Bilirubin Total 0.6 mg/dL (0.2-1.3); Blood Urea Nitrogen 15 mg/dL (7-17); Calcium 9.2 mg/dL (8.4-10.2); Carbon Dioxide 25 mmol/L (22-32); Chloride 97 mmol/L (98-107); Estimated Glomerular Filt Rate > 60 mL/min (>60); Globulin 3.1 g/dL (1.7-4.1); Glucose 109 mg/dL (70-100); HEMOLYSIS < 15 (0-50); Lipase 130 U/L (23-300); Potassium 3.1 mmol/L (3.4-5.1); Sodium 135 mmol/L (137-145); Total Protein 7.8 g/dL (6.3-8.2)
[2022-09-19 21:25] LABS: Pregnancy Test Serum,Qual Negative (Negative)
--- NOTE | 2022-09-19 21:26 | ED.ABDPAIN ---
HPI - Abdominal Pain General Chief Complaint: Abdominal Pain Stated Complaint: Thinks ovarian torsion Time Seen by Provider: 09/19/22 20:44 Source: patient Mode of arrival: Wheelchair History of Present Illness HPI narrative: Patient is a healthy 32-year-old who previously had a right ovarian torsion on 08/13/2022. She was noted to have a 3.7 cm cyst on the same side. She was taken to the OR and it was untwisted, but not removed. She presents today with sudden onset right lower quadrant pain very similar to previous presentation. She is nauseous with vomiting. No vaginal bleeding. Unsure if she is . Related Data Home Medications Medication Instructions Recorded Confirmed spironolactone 50 mg tablet 100 mg PO DAILY ##0 08/09/17 09/20/22 (Aldactone) minoxidil 2.5 mg tablet 2.5 mg PO Q OTHER DAY 08/13/22 09/20/22 Previous Rx's Medication Instructions Recorded levonorgestrel-ethinyl estradiol 1 tab PO DAILY #84 tabs 09/02/22 0.1 mg-20 mcg tablet Allergies Allergy/AdvReac Type Severity Reaction Status Date / Time UNKNOWN ABX FOR SKIN Allergy Unknown Uncoded 09/02/22 08:45 INFECTION Review of Systems Review of Systems Narrative: GENERAL: Denies chills,fever HEENT: Denies throat pain RESPIRATORY: Denies dyspnea, cough, wheezing CARDIOVASCULAR: Denies chest pain, palpitations GASTROINTESTINAL: See HPI MUSCULOSKELETAL: Denies extremity pain, injury SKIN: No rash, no laceration, no pruritus NEUROLOGIC: Denies weakness, dizziness, headache, numbness 8 point review of systems is negative except for those stated above and HPI Patient History Medical History (Updated 09/19/22 @ 22:23 by Greer Shore DO) Herpes No significant medical problems Routine screening for STI (sexually transmitted infection) Surgical History (Updated 09/06/22 @ 20:26 by Katie Oliva) Anesthesia Family History (Updated 09/06/22 @ 20:28 by Katie Oliva) Father Alzheimer's disease Mother Cancer Mental health problem Social History household members: none Smoking Status: Current some day smoker alcohol intake: current Smoking Status: Current some day smoker tobacco type: vaping alcohol intake frequency: a few times a week Alcohol type: wine and hard liquor Substance Use Type: does not use Exam Initial Vital Signs Initial Vital Signs: Vital Signs Temperature 97.6 F 09/19/22 20:27 Pulse Rate 58 L 09/19/22 20:27 Respiratory Rate 20 09/19/22 20:27 Blood Pressure 107/71 09/19/22 20:27 Pulse Oximetry 99 09/19/22 20:27 Oxygen Delivery Method 09/19/22 20:27 GENERAL: 32-year-old female doubled over in severe pain HEENT: Head atraumatic,EOMI, pupils reactive, face symmetric, moist mucous membranes CARDIOVASCULAR: Regular rate and rhythm without murmurs, rubs or gallops. RESPIRATORY: Breath sounds equal bilaterally, no wheezes rales or rhonchi. ABDOMEN: Soft, tender right lower quadrant with rebound and guarding : No CVA tenderness EXTREMITIES: Normal range of motion, no clubbing or edema. Neurovascularly intact NEUROLOGICAL: Alert and oriented x4. SKIN: Warm, dry, no laceration, no petechiae, no rashes or lesions. Course Orders Ordered: ED Orders 09/19/22 20:34 Complete Blood Count AUTO DIFF Stat Comprehensive Metabolic Panel Stat Lipase Stat Test Serum,Qual Stat 09/19/22 20:36 Beta HCG, Quant [HCG Quantitative /Beta subunit] Stat 09/19/22 20:44 US pelvic complete Stat 09/19/22 21:51 COVID19 -Nasal RAPID/Pre-Proc Stat Acetaminophen (Acetaminophen 325 Mg Tablet) 650 mg PO Q6HR PRN PRN Reason: Fever/Mild Pain (1-3) Albuterol (Albuterol 2.5 Mg/3 Ml Neb (Adult)) 2.5 mg INH NOW PRN PRN Reason: Coughing, Wheezing, Dyspnea Benzocaine (Benzocaine/Menthol 1 [place] Pkt) 1 each PO PRN PRN PRN Reason: Sore Throat Citric Acid/Sodium Citrate (Citric Acid/Sodium Citrate 15 Ml Solution) 30 ml PO NOW MOON Last Admin: 09/19/22 22:36 Dose: 30 ml Documented By: LOS Docusate Sodium (Docusate 100 Mg Capsule) 200 mg PO BID [facility] Fentanyl (Fentanyl 100 Mcg/2 Ml Inj) 0 mcg IV Q5M PRN PRN Reason: Pain, Moderate (4-6) Hydromorphone HCl (Hydromorphone 2 Mg Inj) 0 mg IV Q5MIN PRN PRN Reason: Pain, Mild (1-3) Lactated Ringer's (Lactated Ringers) 1,000 mls @ 100 mls/hr IV CONT [facility] Last Admin: 09/20/22 01:37 Dose: 100 mls/hr Documented By: Infusion: 09/20/22 01:37 Dose: 100 mls/hr Documented By: Admin: 09/19/22 23:00 Dose: 100 mls/hr Documented By: LUISANA Lactated Ringer's (Lactated Ringers) 1,000 mls @ 120 mls/hr IV CONT [facility] Last Admin: 09/20/22 02:29 Dose: Not Given Documented By: ELIUD Lactated Ringer's (Lactated Ringers) 1,000 mls @ 100 mls/hr IV CONT [facility] Last Admin: 09/20/22 01:45 Dose: 100 mls/hr Documented By: ELIUD Ibuprofen (Ibuprofen 600 Mg Tablet) 600 mg PO Q6HR PRN PRN Reason: Fever/Mild Pain (1-3) Ketorolac Tromethamine (Ketorolac 30 Mg/Ml Vial) 30 mg IV Q6H [facility] Stop: 09/20/22 19:01 Last Admin: 09/20/22 01:56 Dose: 30 mg Documented By: ELIUD Lorazepam (Lorazepam 2 Mg/Ml Inj) 0.25 mg IV NOW PRN PRN Reason: Anxiety Magnesium Hydroxide (Magnesium Hydroxide 30 Ml Udc) 30 ml PO DAILY PRN PRN Reason: Constipation Meperidine HCl (Meperidine 50 Mg/Ml Inj) 12.5 mg IV PACUNOW PRN PRN Reason: Mild pain or shivering Naloxone HCl (Naloxone 0.4 Mg/Ml Vial) 0.2 mg IV Q2MIN PRN PRN Reason: Opiate Reversal Ondansetron HCl (Ondansetron 4 Mg/2 Ml Inj) 4 mg IV NOW PRN PRN Reason: Nausea And Vomiting Ondansetron HCl (Ondansetron 4 Mg/2 Ml Inj) 4 mg IV Q6HR PRN PRN Reason: Nausea And Vomiting Oxycodone HCl (Oxycodone Ir 5 Mg Tablet) 5 mg PO PACUNOW PRN PRN Reason: Mild or moderate pain Oxycodone HCl (Oxycodone Ir 5 Mg Tablet) 5 mg PO Q4HR PRN PRN Reason: Pain, Moderate (4-6) Discontinued Medications Bupivacaine HCl (Bupivacaine 0.25% (Pf) Vial) 30 ml INJ NOW ONE Stop: 09/20/22 00:32 Last Admin: 09/20/22 00:31 Dose: 10 ml Documented By: MILLER Fentanyl (Fentanyl 100 Mcg/2 Ml Inj) 50 mcg IV NOW ONE Stop: 09/19/22 23:18 Last Admin: 09/19/22 23:24 Dose: 50 mcg Documented By: LUISANA Hydromorphone HCl (Hydromorphone 1 Mg Inj) 1 mg IV NOW ONE Stop: 09/19/22 20:45 Last Admin: 09/19/22 21:02 Dose: 1 mg Documented By: LOS Hydromorphone HCl (Hydromorphone 1 Mg Inj) 1 mg IV NOW ONE Stop: 09/19/22 21:29 Last Admin: 09/19/22 21:48 Dose: Not Given Documented By: LOS Hydromorphone HCl (Hydromorphone 0.5 Mg Inj) 0.5 mg IV NOW ONE Stop: 09/19/22 21:49 Last Admin: 09/19/22 21:52 Dose: 0.5 mg Documented By: LOS Sodium Chloride (Normal Saline 0.9%) 1,000 mls @ 1,000 mls/hr IV BOLUS ONE Stop: 09/19/22 21:43 Last Infusion: 09/19/22 22:05 Dose: 0 mls/hr Documented By: Admin: 09/19/22 21:00 Dose: 1,000 mls/hr Documented By: LOS Ondansetron HCl (Ondansetron 4 Mg/2 Ml Inj) 4 mg IV NOW ONE Stop: 09/19/22 20:31 Last Admin: 09/19/22 20:40 Dose: 4 mg Documented By: LOS Ondansetron HCl (Ondansetron 4 Mg/2 Ml Inj) 4 mg IV NOW ONE Stop: 09/19/22 21:46 Last Admin: 09/19/22 21:52 Dose: 4 mg Documented By: LOS Ropivacaine (Ropivacaine 0.2% Pf 2 Mg/Ml 10ml Amp) 20 ml INJ NOW ONE Stop: 09/20/22 00:33 Last Admin: 09/20/22 00:32 Dose: 20 ml Documented By: MILLER Vital Signs Vital signs: Vital Signs - 8 hr 09/19/22 20:27 09/19/22 20:50 09/19/22 20:50 Temperature 97.6 F Pulse Rate 58 L 56 L Respiratory Rate 20 Blood Pressure 107/71 117/57 L Pulse Oximetry 99 100 Oxygen Delivery Method Room Air Room Air 09/19/22 21:01 09/19/22 21:30 Temperature Pulse Rate 69 63 Respiratory Rate Blood Pressure Pulse Oximetry 95 98 Oxygen Delivery Method Room Air Room Air MDM - Abdominal Pain Lab Data Result diagrams: 09/19/22 20:34 09/19/22 20:34 Labs: Lab Results 09/19/22 09/19/22 09/19/22 Range/Units 20:34 20:34 20:34 WBC 9.7 (4.5-11.0) X10^3/uL RBC 4.47 (4.0-5.2) X10^6/uL Hgb 14.0 (12.0-16.0) g/dL Hct 40.1 (36-46) % MCV 89.7 (80-100) fL MCH 31.4 (26-34) PG MCHC 35.0 (30-36) % RDW 12.1 (11.6-14.8) % Plt Count 325 (150-400) X10^3/uL Neut % (Auto) 62.7 (50-75) % Lymph % (Auto) 27.9 (25-40) % Beadle % (Auto) 7.5 (3-14) % Eos % (Auto) 0.5 L (2-4) % Baso % (Auto) 1.4 (0-2) % Neut # (Auto) 6100 (6247-7860) /uL Lymph # (Auto) 2700 (6085-0381) /uL Beadle # (Auto) 700 (0-900) /uL Eos # (Auto) 0 (0-450) /uL Baso # (Auto) 100 (0-100) /uL Sodium 135 L (137-145) mmol/L Potassium 3.1 L (3.4-5.1) mmol/L Chloride 97 L (98-107) mmol/L Carbon Dioxide 25 (22-32) mmol/L BUN 15 (7-17) mg/dL Creatinine 0.64 (0.52-1.04) mg/dL Estimated GFR > 60 (>60) mL/min BUN/Creatinine Ratio 23.4 H (6-22) Glucose 109 H (70-100) mg/dL Calcium 9.2 (8.4-10.2) mg/dL Total Bilirubin 0.6 (0.2-1.3) mg/dL AST 30 (14-36) IU/L ALT 21 (<35) IU/L Alkaline Phosphatase 72 (38-126) U/L Total Protein 7.8 (6.3-8.2) g/dL Albumin 4.7 (3.5-5.0) g/dL Globulin 3.1 (1.7-4.1) g/dL Albumin/Globulin Ratio 1.5 (1.0-2.8) Lipase 130 (23-300) U/L HCG, Quant mIU/mL Serum , Qual Negative (Negative) 09/19/22 Range/Units 20:36 WBC (4.5-11.0) X10^3/uL RBC (4.0-5.2) X10^6/uL Hgb (12.0-16.0) g/dL Hct (36-46) % MCV (80-100) fL MCH (26-34) PG MCHC (30-36) % RDW (11.6-14.8) % Plt Count (150-400) X10^3/uL Neut % (Auto) (50-75) % Lymph % (Auto) (25-40) % Beadle % (Auto) (3-14) % Eos % (Auto) (2-4) % Baso % (Auto) (0-2) % Neut # (Auto) (4103-1191) /uL Lymph # (Auto) (2190-9608) /uL Beadle # (Auto) (0-900) /uL Eos # (Auto) (0-450) /uL Baso # (Auto) (0-100) /uL Sodium (137-145) mmol/L Potassium (3.4-5.1) mmol/L Chloride (98-107) mmol/L Carbon Dioxide (22-32) mmol/L BUN (7-17) mg/dL Creatinine (0.52-1.04) mg/dL Estimated GFR (>60) mL/min BUN/Creatinine Ratio (6-22) Glucose (70-100) mg/dL Calcium (8.4-10.2) mg/dL Total Bilirubin (0.2-1.3) mg/dL AST (14-36) IU/L ALT (<35) IU/L Alkaline Phosphatase (38-126) U/L Total Protein (6.3-8.2) g/dL Albumin (3.5-5.0) g/dL Globulin (1.7-4.1) g/dL Albumin/Globulin Ratio (1.0-2.8) Lipase (23-300) U/L HCG, Quant < 2.4 mIU/mL Serum , Qual (Negative) Imaging Data US - LICENSED MENTAL HEALTH PROFESSIONAL: Radiologist's Impression: Ultrasound Report Signed Patient: Mona Ohara MR#: [id number] : 1990 Acct:[id number] Age/Sex: 32 / F Date of Service: 09/19/22 [facility] Accession Number: [id number] ?? Procedure: US pelvic complete Ordering Provider: Greer Shore D.O. PROCEDURE:? US PELVIC COMPLETE ? INDICATIONS:? RIGHT PELVIC PAIN; RECENT RIGHT OVARIAN TORSION ? TECHNIQUE:? Real-time scanning was performed of the pelvic organs, with image documentation.? Additional endovaginal scanning was necessary due to incomplete visualization of the adnexal and endometrial structures by transabdominal scanning.? ? COMPARISON:[facility], , US PELVIC COMPLETE, 08/13/2022, 19:13. ? FINDINGS:? ?? Uterus:? Uterus is anteverted and measures 6.3 x 2.9 x 4.5 cm. Endometrium measures up to 0.5 cm. ? Ovaries:? The right ovary measures 6.1 x 5.2 x 2.4 cm, with a calculated ovarian volume of 40 cc. The left ovary measures 3.5 x 3.9 x 2.5 cm, with a calculated ovarian volume of 17.6 cc.? The right ovary demonstrates a few peripherally distributed follicles, the largest measuring up to 1.3 cm.? No definite arterial flow demonstrated within the right ovary on Doppler interrogation.? There is minimal venous flow demonstrated within the right ovary.? Within the left ovary, there is an oval hypoechoic structure suggestive of a complex cyst measuring up to 1.8 x 1.2 x 1.3 cm.? Patent arterial flow is demonstrated within the left ovary. ? Other:? There is a small amount of pelvic free fluid. ? ? IMPRESSION:? ? 1. Prominently enlarged right ovary with peripherally distributed follicles and absence of arterial flow on Doppler interrogation.? The findings are compatible with recurrent ovarian torsion.? Findings discussed with Dr. Shore on 09/19/2022 at 9:42 p.m.. ? 2. Hypoechoic structure within the left ovary likely represents a mildly complex cyst.? A follow-up ultrasound may be performed in 6-12 weeks to demonstrate resolution. ? We strive to produce accurate, complete, and clear reports of imaging services. To assist us in improving patient care, this report was composed using standard report templates and voice recognition software. Therefore, it may contain abnormal punctuation, insertions and/or omissions. Occasional wrong-word or sound-alike substitutions may occur. Though we review the report and make efforts to correct it, we do recommend that the report be read carefully in proper context to recognize any text inaccuracies. ? ? Dictated by: Aubrey Wilks M.D. on 09/19/2022 at 21:40 ? ? [facility] Narrative Medical decision making narrative: Patient has severe sudden onset of right lower quadrant pain similar to previous rate ovarian torsion. Blood work shows that she is not therefore ectopic is ruled out. transportation engineering technician does state probable right ovarian torsion. Dr. Conrad notified of preliminary results waiting for official radiology read. Dr. Wilks call to confirm that there is right ovarian torsion. Patient is taken to the OR with Dr. Conrad. Her pain is much better controlled after Dilaudid. Her elderly neighbor did bring her here and she confirmed his that she is safe and he is welcome. Discharge Plan Departure Patient Disposition: Admitted as Observation Clinical Impression: Ovarian torsion Admit Date/Time: 09/19/22 21:47 Admit Provider: Mally Conrad
[2022-09-19 21:51] LABS: HCG Quantitative /Beta subunit < 2.4 mIU/mL
[2022-09-19] MEDS: HYDROMORPHONE 0.5 MG INJ IV (21:52)
--- NOTE | 2022-09-19 22:10 | P.HP_ITS ---
History of Present Illness History of Present Illness Date Patient Seen: 09/19/22 Time Patient Seen: 22:10 Chief complaint: Thinks ovarian torsion Narrative: Patient is a 32-year-old 0 who presented to the emergency department with right lower quadrant pain and nausea and vomiting. Patient had laparoscopy on August 13, 2022 for a torsion of the right ovary. The ovary was untwisted but was not removed. Patient History Medical History (Updated 09/19/22 @ 22:23 by Greer Shore DO) Herpes No significant medical problems Routine screening for STI (sexually transmitted infection) Surgical History (Updated 09/06/22 @ 20:26 by Katie Oliva) Anesthesia Family & Social History Family History (Updated 09/06/22 @ 20:28 by Katie Oliva) Father Alzheimer's disease Mother Cancer Mental health problem Social History: household members none Safety & Behavioral: Feels Safe in Current Yes Environment Tobacco & Substance use: Tobacco type e-cigarettes Smoking Status Current some day smoker alcohol intake current alcohol intake frequency a few times a week Substance Use Type does not use Meds Home Medications and Allergies Home Medications Medication Instructions Recorded Confirmed Type spironolactone 50 mg tablet 100 mg PO DAILY ##0 08/09/17 09/02/22 History (Aldactone) minoxidil 2.5 mg tablet 2.5 mg PO Q OTHER DAY 08/13/22 09/02/22 History levonorgestrel-ethinyl estradiol 1 tab PO DAILY #84 tabs 09/02/22 09/02/22 Rx 0.1 mg-20 mcg tablet Allergies Allergy/AdvReac Type Severity Reaction Status Date / Time UNKNOWN ABX FOR SKIN Allergy Unknown Uncoded 09/02/22 08:45 INFECTION Review of Systems Review of Systems ROS: Yes All systems reviewed with the patient and are negative except as otherwise documented Gastrointestinal Gastrointestinal: Reports abdominal pain, Reports nausea and Reports vomiting Exam Vital Signs (past 8 hours): - 09/19/22 20:27 09/19/22 20:50 09/19/22 20:50 Temperature 97.6 F Pulse Rate 58 L 56 L Respiratory Rate 20 Blood Pressure 107/71 117/57 L Pulse Oximetry 99 100 Oxygen Delivery Method Room Air Room Air 09/19/22 21:01 09/19/22 21:30 09/19/22 21:56 Temperature Pulse Rate 69 63 81 Respiratory Rate Blood Pressure Pulse Oximetry 95 98 92 Oxygen Delivery Method Room Air Room Air Room Air 09/19/22 21:56 Temperature Pulse Rate Respiratory Rate Blood Pressure 118/67 Pulse Oximetry Oxygen Delivery Method Oxygen Delivery Method Room Air Narrative Exam Narrative: Generally: Patient lying over on her left side, in the position, in moderate distress secondary to abdominal pain Lungs: Clear to auscultation bilaterally Cardiovascular: Regular rate and rhythm Abdomen: Well-healed laparoscopy scars. There is guarding and rebound tenderness. Ultrasound: Objective Labs Result Diagrams: 09/19/22 20:34 09/19/22 20:34 Labs: Laboratory Results - last 24 hr 09/19/22 09/19/22 09/19/22 20:34 20:34 20:34 WBC 9.7 RBC 4.47 Hgb 14.0 Hct 40.1 MCV 89.7 MCH 31.4 MCHC 35.0 RDW 12.1 Plt Count 325 Neut % (Auto) 62.7 Lymph % (Auto) 27.9 Darke % (Auto) 7.5 Eos % (Auto) 0.5 L Baso % (Auto) 1.4 Neut # (Auto) 6100 Lymph # (Auto) 2700 Darke # (Auto) 700 Eos # (Auto) 0 Baso # (Auto) 100 Sodium 135 L Potassium 3.1 L Chloride 97 L Carbon Dioxide 25 BUN 15 Creatinine 0.64 Estimated GFR > 60 BUN/Creatinine Ratio 23.4 H Glucose 109 H Calcium 9.2 Total Bilirubin 0.6 AST 30 ALT 21 Alkaline Phosphatase 72 Total Protein 7.8 Albumin 4.7 Globulin 3.1 Albumin/Globulin Ratio 1.5 Lipase 130 HCG, Quant Serum , Qual Negative 09/19/22 20:36 WBC RBC Hgb Hct MCV MCH MCHC RDW Plt Count Neut % (Auto) Lymph % (Auto) Darke % (Auto) Eos % (Auto) Baso % (Auto) Neut # (Auto) Lymph # (Auto) Darke # (Auto) Eos # (Auto) Baso # (Auto) Sodium Potassium Chloride Carbon Dioxide BUN Creatinine Estimated GFR BUN/Creatinine Ratio Glucose Calcium Total Bilirubin AST ALT Alkaline Phosphatase Total Protein Albumin Globulin Albumin/Globulin Ratio Lipase HCG, Quant < 2.4 Serum , Qual PROCEDURE:? US PELVIC COMPLETE ? INDICATIONS:? RIGHT PELVIC PAIN; RECENT RIGHT OVARIAN TORSION ? TECHNIQUE:? Real-time scanning was performed of the pelvic organs, with image documentation.? Additional endovaginal scanning was necessary due to incomplete visualization of the adnexal and endometrial structures by transabdominal scanning.? ? COMPARISON:? [facility], US, US PELVIC COMPLETE, 08/13/2022, 19:13. ? FINDINGS:? ?? Uterus:? Uterus is anteverted and measures 6.3 x 2.9 x 4.5 cm. Endometrium measures up to 0.5 cm. ? Ovaries:? The right ovary measures 6.1 x 5.2 x 2.4 cm, with a calculated ovarian volume of 40 cc. The left ovary measures 3.5 x 3.9 x 2.5 cm, with a calculated ovarian volume of 17.6 cc.? The right ovary demonstrates a few peripherally distributed follicles, the largest measuring up to 1.3 cm.? No definite arterial flow demonstrated within the right ovary on Doppler interrogation.? There is minimal venous flow demonstrated within the right ovary.? Within the left ovary, there is an oval hypoechoic structure suggestive of a complex cyst measuring up to 1.8 x 1.2 x 1.3 cm.? Patent arterial flow is demonstrated within the left ovary. ? Other:? There is a small amount of pelvic free fluid. ? ? IMPRESSION:? ? 1. Prominently enlarged right ovary with peripherally distributed follicles and absence of arterial flow on Doppler interrogation.? The findings are compatible with recurrent ovarian torsion.? Findings discussed with Dr. Shore on 09/19/2022 at 9:42 p.m.. ? 2. Hypoechoic structure within the left ovary likely represents a mildly complex cyst.? A follow-up ultrasound may be performed in 6-12 weeks to demonstrate resolution. ? We strive to produce accurate, complete, and clear reports of imaging services. To assist us in improving patient care, this report was composed using standard report templates and voice recognition software. Therefore, it may contain abnormal punctuation, insertions and/or omissions. Occasional wrong-word or sound-alike substitutions may occur. Though we review the report and make efforts to correct it, we do recommend that the report be read carefully in proper context to recognize any text inaccuracies. ? Assessment & Plan Assessment & Plan narrative: Assessment: 32-year-old 0 with a recurrent right ovarian torsion Simple left ovarian cyst Plan: Laparoscopic removal of the right tube and ovary Drainage of the left ovarian cyst The risks, benefits, and alternatives to the procedure were explained to the patient. The risks including bleeding, infection, injury to the bowel, bladder, or ureters. She understands these risks and agrees to proceed. A full par Q was held and consent form was signed. COVID-19 COVID-19 status: Negative Result date/Date tested (Pos, Neg/Pending): 09/19/22 Time Spent With Patient Time with patient: less than 30 minutes Critical Care time: I spent a total of [] minutes of critical care time on this patient's care today; this time is exclusive of procedural time.
--- NOTE | 2022-09-19 22:15 | PM.PREOP ---
Pre-operative Note COVID-19 COVID-19 status: Negative Result date/Date tested (Pos, Neg/Pending): 09/19/22 Criteria for continued procedure: Non-surgical alternatives not available or appropriate per current SOC Interval Note History & Physical reviewed/Exam performed by Physician: Yes Changes to H&P: No H&P completed within 30 days and has changed as indicated here:: 09/19/22
[2022-09-19 22:23] LABS: COVID19 -Nasal RAPID Negative (Negative)
[2022-09-19] MEDS: CITRIC ACID/SODIUM CITRATE 15 ML SOLUTION 30 ML PO (22:36)
[2022-09-19] MEDS: LACTATED RINGERS 1,000 ML 100 ML IV (23:00)
[2022-09-19] MEDS: fentaNYL 100 MCG/2 ML INJ 50 MCG IV (23:24)
[2022-09-20] VITALS (9 sets, daily range): BP systolic 115–132; BP diastolic 63–78; PULSE 86–108; RESP 12–18; TEMP 36.4–37.6; O2SAT 93–100
--- NOTE | 2022-09-20 | PATH_ITS ---
[facility] Accession Number: [id number] . 01 Material submitted: . ovary - RIGHT OVARY AND RIGHT FALLOPIAN TUBE . 01 Diagnosis: Right Ovary and Right Fallopian Tube (weight 28 grams): Segment of fallopian tube with intraluminal hemorrhage; negative for epithelial atypia or neoplasia. Ovary with diffuse intraparenchymal hemorrhage, consistent with clinical impression of torsion. Negative for neoplasia. MRV 09/24/2022 1532 Local . 01 Electronically signed: . Olena Blackman MD, Pathologist NPI- [id number] . 01 Gross description: . The specimen is received in formalin, labeled with the patient's name, , and right ovary and fallopian tube, and consists of an intact fimbriated fallopian tube measuring 8.3 x 0.9 cm with congested smooth serosa and a cystic structure measuring 0.3 cm in greatest dimension. Sectioning reveals a congested stellate lumen. Also included are multiple fragments of dark brown, firm tissue consistent with hemorrhagic ovary with a weight of 28 g and aggregating to 7.5 x 6.7 x 1.5 cm. Sectioning reveals a red-brown, hemorrhagic cut surface with no normal ovarian parenchyma or lesions identified. Gear Cutting Machine Set Up Operator sections are submitted as follows: A1: Fallopian tube to include cross sections and entire bisected fimbriae. A2-A3: Gear Cutting Machine Set Up Operator hemorrhagic ovary. ([id number]) /FRR 09/22/20229 Local . 01 Pathologist provided ICD-10: N83.53 . 01 CPT . 149802 Specimen Comment: A courtesy copy of this report has been sent to [phone] Performed at: 01 [facility] [address] [place] [address] Suite [facility], [place], [place] [id number] MD Aubrey Parks MD Phone: [phone]
--- NOTE | 2022-09-20 00:20 | SUR.OPER ---
Lithotomy on padded OR bed, head on pillow, arms secured on padded arm boards at <90 degrees abduction. Legs secured in padded yellow fins stirrups.
[2022-09-20] MEDS: BUPIVACAINE 0.25% (PF) VIAL 30 ML INJ (00:31)
[2022-09-20] MEDS: ROPIVACAINE 0.2% PF 2 MG/ML 10ML AMP 20 ML INJ (00:32)
--- NOTE | 2022-09-20 00:52 | P.OP_ITS ---
Operative Date/Time/Diagnoses Date of procedure: 09/20/22 Time of procedure: 00:52 Pre-op diagnosis: Torsion of the right ovary Post-op diagnosis: same Procedure & Clinicians Procedure: Procedures Operation Date: 09/19/22 22:45 Actual Procedure Side Surgeon p Laparoscopic right salpingo-oophorectomy and fulguration of endometriosis Mally Conrad MD Indications: No blood flow to the right ovary Severe right lower quadrant pain History of right ovarian torsion Normal liver and gallbladder Normal appendix Surgeon: Mally Conrad Anesthesia Type: General and Local Operative Notes Findings: 6 cm right ovary with torsion The tube and ovary were twisted around the pedicle 3 times Normal liver Normal appendix Endometriosis in the posterior cul-de-sac Closure Type: primary Specimen(s): right tube & ovary Applied: catheter (In and out) Estimated blood loss (mL): 30 Blood products transfused: none Procedure in detail: After informed consent was obtained, the patient was taken to the operating room where she was placed in the dorsal supine position. After adequate general endotracheal anesthesia was achieved, she was placed in the dorsal lithotomy position, and prepped and draped in the usual sterile fashion. A time-out was performed. A bivalve speculum was placed into the vagina and the anterior lip of the cervix was grasped with a single-tooth tenaculum. The cervical os was sequentially dilated until the Zumi uterine manipulator could pass easily into the endometrial cavity. The single-tooth tenaculum was removed from the anterior lip of the cervix. The bivalve speculum was removed from the vagina. Attention was then turned to the abdomen where 6 cc of 0.25% Marcaine with epinephrine were injected in the umbilical fold. A 5 mm incision was made. The Veress needle was placed into the peritoneal cavity, and its placement confirmed by aspiration and drop test. The abdominal cavity was insufflated with 3.1 L of CO2. The Veress needle was removed, and a 5 mm trocar was placed without difficulty. Two other 5 mm trocars were placed after 6 cc of 0.25% Marcaine with epinephrine were injected and 2 5 mm incisions were made 4 cm lateral to the midline at the level of the umbilicus. A probe was used to identify the right tube and ovary which were twisted 3 times around the pedicle. The ovary was dark purple/black. The liver, gallbladder, and appendix were visualized and were normal. The right tube and ovary were grasped with an atraumatic grasper. Using the power seal, the infundibulopelvic ligament on the right side was cauterized and cut. The mesosalpinx was cauterized and cut all the way down to the cornua of the uterus. The tube was amputated at the cornua. The utero- ovarian vessels were cauterized and cut with the power seal. The tube and ovary were placed into the anterior cul-de-sac. An inspection of the remainder of the pelvis revealed endometriosis in the posterior cul-de-sac. Using the J-hook, the endometriosis was cauterized. There were approximately 9 lesions. 6 cc of 0.25% Marcaine with epinephrine were injected above the pubic symphysis in the midline. A 12 mm incision was made. A 12 mm trocar was placed under direct visualization. The endobag was placed through the suprapubic incision. The tube and ovary were placed into the bag. The trocar was removed. The edges of the bag were brought up through the skin. The ovary was morcellated in approximately 10 pieces. The bag was removed from the incision. The fascia was reapproximated with 0 Vicryl in a running fashion. The abdomen was re- insufflated. Suction and irrigation were used. There was no bleeding noted. The instruments were removed from the abdomen. The CO2 was allowed to escape. The suprapubic incision was closed with 2 simple interrupted sutures in the subcutaneous layer. All of the skin incisions were closed with 4-0 Monocryl in a subcuticular fashion. Steri-Strips and Allevyn dressings were placed. The Zumi uterine manipulator was removed from the uterus. Sponge, lap, and instrument counts were correct x2. The patient tolerated the procedure well, and was taken to PACU in stable condition. Complications: none Post-operative Condition: stable Disposition: PACU Plan for aftercare: To acute care after recovery
[2022-09-20] MEDS: LACTATED RINGERS 1,000 ML 100 ML IV ×2 (01:37→01:45)
[2022-09-20] MEDS: KETOROLAC 30 MG/ML VIAL IV ×3 (01:56→11:43)
[2022-09-20] MEDS: OXYCODONE IR 5 MG TABLET PO (04:12)
--- NOTE | 2022-09-20 04:22 | PC.NURSE ---
Pt is AxOx4, independent and cooperative. Pt came to the unit from [facility] around 0130. Pt has 4 lap sites on lower abdomen and these are all C/D/I. Pt c/o pain on abd around 0400 and recieved PO Oxy 5mg with good effect. Pt is voiding well and eating light meal. No other changes.
--- NOTE | 2022-09-20 09:00 | CM.DANOTE ---
Addendum entered by LYSSA Luis 09/20/22 14:25: ADD: Per , pt medically stable to d/c home later today with close outpt follow up and no identified barriers to discharge. BF Original Note: Patient is a 32 yo female who was admitted on 09/19/22 for Ovarian Torsion. Pt has [employer] for insurance and her PCP is Kate Montelongo. EMR was reviewed. Per , pt with hx of recent intervention for ovarian torsion and now admitted for Lap removal of ovary and tube and drainage of cyst. Pt had surgical intervention very early this morning and tolerated well. Per RN, pt has been voiding and tolerating her diet and pain seems to be managed. SW met briefly bedside with pt and explained role and pt still quite sleepy and confirms that she lives alone in [place] but has local supportive family. 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 Pt does not anticipate any needs and family plans to provide support and assist as needed at d/c. Plan: SW to follow for likely d/c home when medically stable and any further identified needs. LYSSA Luis Discharge Planning/Care Management CM Discharge Assessment Start: 09/20/22 08:58 Freq: Status: Active Protocol: Document 09/20/22 08:58 (Rec: 09/20/22 09:00 [id number]) Discharge Planning Assessment Assigned [employer] Tender LYSSA Doyle DPOA/Assigned Designee Name none, informally parents Advance Directives? No Advance Directives on File No History Provided By Patient,Medical Record Has Patient been admitted in last 30 No days? Prior Living Arrangements Apartment/Condo Household Members none Type of transporation used prior to Drives own vehicle admit Independent with ADL's Yes Is patient alert and oriented? Yes Caregiver for Another No Barriers to Discharge No Discharge Plan Home Transportation Arrangement Family can provide transport at d/c Referrals Initiated None needed Whiteboard Updated in Patient Room with Yes name and ext. # of [employer] Tender Review Status In Process Please Provide Date Initial DC 09/20/22 Assessment Was Performed Next Review Type Continued Stay Review
[2022-09-20] MEDS: DOCUSATE 100 MG CAPSULE 200 MG PO (11:42)
[2022-09-20] MEDS: ACETAMINOPHEN 325 MG TABLET 650 MG PO (11:42)
--- NOTE | 2022-09-20 13:27 | PC.NURSE ---
a/o, voices needs. pain controlled w/ IV toradol, PRN tylenol. lap sites are CDI. ice packs are encouraged. f/u appt attempted scheduling w/ Dr Conrad. msg left, awaiting call back. dc orders received. awaiting mom's arrival to floor to p/u patient.
== END 2022-09-20 13:30 | disposition home or self-care (01) ==
LOC: ED 20:44 → AC 21:47
PROVIDERS: Admitting Provider Obstetrics & Gynecology; Emergency Provider Emergency Medicine; PCP Naturopath; Visit Provider Obstetrics & Gynecology
PROC: (CPT 49320; principal; 2022-09-19 22:45)
DX: N83.511 Torsion of right ovary and ovarian pedicle (principal); Z72.0 Tobacco use; Z20.822 Contact with and (suspected) exposure to COVID-19; N80.322 Deep endometriosis of the posterior cul-de-sac
CPT/HCPCS: 58662; 58661; 36415; 76830; 76856; 80053; 83690; 84702; 84703; 85025; 87635; 93975; 96361; 96374; 96375; 96376; 99284; C9803; G0378; J0330; J1100; J1170; J1885; J2250; J2405; J2704; J2795; J3010